=== PATIENT | female | born 1950 | race Hispanic/Latino ===

== ENCOUNTER 2018-01-09 09:55 | Emergency (ER) | payer OTHER, MEDICARE ==
[~2018-01-09] VITALS: Ht 159.3 cm; Wt 90.0 kg
[~2018-01-09 09:55] MED LIST: ALENDRONATE70 MG PO; AMOXICILLIN500 MG PO; AMOXICILLIN875 MG OR; AUGMENTIN875TAB PO; CALCIUM CHEL1 CAP PO; DOXYCYC MONO100 M1 PO; HYDROCHLOROT25 MG PO; HYZAAR1 TA1 PO; HYZAAR1 TA2 PO; JANUVIA100 MG PO; KLOR-CON 88 MEQ PO; LOSARTAN POT100 MG PO; METRONIDAZOLE250 MG PO; NASAL MOIST0.65 % NAB; RANITIDINE150 M1 PO; TESSALON PER100 MG PO; TEST STRIP SC; VYTORIN 10/401 TAB PO; VYTORIN1 TA1; VYTORIN1 TAB PO; [UNRECOGNIZED DRUG - OTHER] PO
[2018-01-09] MEDS ORDERED: MOTRIN800 MG PO (11:35)
[2018-01-09 11:40] VITALS: BP 163/86
== END 2018-01-09 11:44 | disposition home or self-care (01) | DRG 605 ==
LOC: ED 09:55
DX: S80.01XA Contusion of right knee, initial encounter (principal); E11.9 Type 2 diabetes mellitus without complications; I10 Essential (primary) hypertension; W10.9XXA Fall (on) (from) unspecified stairs and steps, initial encounter; Y92.009 Unspecified place in unspecified non-institutional (private) residence as the place of occurrence of the external cause

== ENCOUNTER 2018-01-24 09:37 | Emergency (ER) | payer OTHER, MEDICARE ==
[~2018-01-24] VITALS: Ht 159.3 cm; Wt 83.2 kg
[~2018-01-24 09:37] MED LIST changes: +MOTRIN800 MG PO
[2018-01-24] MEDS ORDERED: MOTRIN400 MG PO (10:22)
[2018-01-24 10:37] VITALS: BP 148/88
== END 2018-01-24 10:40 | disposition home or self-care (01) | DRG 950 ==
LOC: ED 09:37
DX: S86.911D Strain of unspecified muscle(s) and tendon(s) at lower leg level, right leg, subsequent encounter (principal); E11.9 Type 2 diabetes mellitus without complications; I10 Essential (primary) hypertension; S83.91XD Sprain of unspecified site of right knee, subsequent encounter; W19.XXXD Unspecified fall, subsequent encounter

== ENCOUNTER 2024-07-04 19:44 | Emergency (ER) | payer MEDICARE ==
[~2024-07-04] VITALS: Ht 159.3 cm; Wt 88.0 kg
[2024-07-04] VITALS (7 sets, daily range): BP systolic 144–158; BP diastolic 58–70
[~2024-07-04 19:44] MED LIST changes: +MOTRIN400 MG PO
[2024-07-04] MEDS ORDERED: LIPITOR40 M1 PO (19:56)
[2024-07-04] MEDS ORDERED: D350 MCG PO (19:57)
[2024-07-04] MEDS ORDERED: MELATONIN3 M1 PO (19:57)
[2024-07-04] MEDS ORDERED: ALENDRONATE35 MG PO (19:58)
[2024-07-04] MEDS ORDERED: LORazepam 1 MG/TAB PO ONE (20:20)
[2024-07-04 20:31] LABS: BASO% 0.3 % (0-3); EOS% 1.6 % (0-8); HEMATOCRIT 39.9 % (37.0-47.0); HEMOGLOBIN 12.7 g/dl (12.0-16.0); IMMATURE GRANULOCYTES 0.1 % (0.0-5.0); LYMPH% 15.6 % (15-41); MEAN CELL VOLUME 96.1 fL CALC (80.0-100.0); MEAN CORPUSCULAR HGB 30.6 pG CALC (26.0-32.0); MEAN CORPUSCULAR HGB CONC 31.8 g/dL CAL (32.0-36.0); MONO% 7.2 % (2-13); NEUT# 6.66 thou/uL (2.00-7.15); NEUT% 75.2 % (42-76); RED BLOOD COUNT 4.15 mill/uL (4.20-5.60); RED CELL DISTRI WIDTH 13.1 % (11.5-15.5); URINE BILIRUBIN - DIPSTICK Negative (NEGATIVE); URINE BLOOD DIPSTICK Moderate (NEGATIVE); URINE COLOR Yellow; URINE GLUCOSE - DIPSTICK Negative (NEGATIVE); URINE KETONE Trace mg/dL (NEGATIVE); URINE LEUK ESTERASE Small (NEGATIVE); URINE NITRITE - DIPSTICK Negative (Negative); URINE PH 5.5 (4.5-8.0); URINE PROTEIN - DIPSTICK Negative (NEG-TRACE); URINE SPECIFIC GRAVITY 1.025; URINE UROBILINOGEN - DIPSTICK 0.2 E.U./dL (0.2)
[2024-07-04 20:38] LABS: URINE MUCUS FEW hpf (NONE-FEW); URINE SQUAMOUS EPITHELIAL CELL MODERATE EPI/hpf (0-FEW)
[2024-07-04 20:42] LABS: ALBUMIN 4.4 g/dL (3.2-5.0); BILIRUBIN, TOTAL 0.8 mg/dL (0.02-1.3); CREATININE 0.7 mg/dL (0.5-1.0); POTASSIUM 3.2 mmol/l (3.5-5.1); TOTAL PROTEIN 8.1 g/dL (6.3-8.2)
[2024-07-04] MEDS ORDERED: LEXAPRO10 MG PO (21:35)
[2024-07-04] MEDS ORDERED: VISTARIL25 MG PO (21:35)
== END 2024-07-04 22:38 | disposition home or self-care (01) ==
LOC: ED 19:44
PROVIDERS: Family Medicine
DX: F41.9 Anxiety disorder, unspecified (principal); G47.00 Insomnia, unspecified; I10 Essential (primary) hypertension; E11.9 Type 2 diabetes mellitus without complications; Z79.84 Long term (current) use of oral hypoglycemic drugs